=== PATIENT | male | born 1955 | race Caucasian/White ===

== ENCOUNTER 2018-05-16 10:47 | Emergency (ER) | payer OTHER ==
[2018-05-16 10:57] VITALS: BP 114/87; PULSE 99; O2SAT 98
[2018-05-16] MEDS ORDERED: BACIGUENT PACKET TP ONE (11:08)
[2018-05-16] MEDS ORDERED: BACIGUENT PACKET ONE (11:14)
--- NOTE | 2018-05-16 11:16 | ERPHSYRPT ---
- History of Present Illness Time Seen by Provider: 05/16/18 11:10 Source: patient Exam Limitations: no limitations Patient Subjective Stated Complaint: pt has neuropathy in feet and this weekend wore sandles and it rubbed left big toe and rubbed a blister. Triage Nursing Assessment: pt here for wound to left bieg toe , pt has large blister on bottom of left big toe Physician History: This is a 62-year-old white male who states she has cervical stenosis, decreased feeling in his feet, and diabetes type 2. He arrives with complaint of pain in his left foot and great toe. He states he has decreased sensation in his feet he wore sandals this weekend on Tuesday he states he developed a blister on the plantar surface of his left great toe. He states that this has ruptured and is no longer there however he has been having erythema and pain in his left great toe and left foot for the past 24 hours. He has not had any fevers no nausea no vomiting. Past medical history includes type 2 diabetes, cervical stenosis, high blood pressure Past surgical history includes C7-T2 fusion and surgery on a duodenal ulcer Social history patient denies tobacco alcohol or illicit drug use Method of Injury: other (patient walking in sandals developed blister which has popped, now left great toe painful erythema left gret toe and distal left foot.) Occurred: other (symptoms for 3 days) Lower Extremities Pain: foot: left, 1st toe: left Modifying Factors: Improves With: nothing Associated Symptoms: other (pain left great toe, ruptured blister (completely gone) plantar surface left great toe, erythema left great toe, left distal foot) Allergies/Adverse Reactions: No Known Drug Allergies Allergy (Unverified 05/16/18 10:57) Home Medications: Amlodipine Besylate 5 mg DAILY 05/16/18 [History] Baclofen 20 mg DAILY 05/16/18 [History] Duloxetine HCl 60 mg DAILY 05/16/18 [History] Gabapentin 800 mg TID 05/16/18 [History] PANTOPRAZOLE 40 mg Tablet [Protonix 40MG Tablet] 40 mg DAILY 05/16/18 [ History] Hx Tetanus, Diphtheria Vaccination/Date Given: No Hx Influenza Vaccination/Date Given: Yes Hx Pneumococcal Vaccination/Date Given: Yes Immunizations Up to Date: Yes - Review of Systems Constitutional: No Fever, No Chills Eyes: No Symptoms Ears, Nose, & Throat: No Symptoms Respiratory: No Cough, No Dyspnea Cardiac: No Chest Pain, No Edema, No Syncope Abdominal/Gastrointestinal: No Abdominal Pain, No Nausea, No Vomiting, No Diarrhea Genitourinary Symptoms: No Dysuria Musculoskeletal: Other (pain left great toe, left foot) Skin: Other (ruptured, excoriated blister left great toe plantar surface, erythema left distal foot left great toe) Neurological: Other (chronic decreased sensation in feet), No Dizziness, No Focal Weakness, No Sensory Changes Endocrine: No Symptoms All Other Systems: Reviewed and Negative - Past Medical History Pertinent Past Medical History: Yes Neurological History: Peripheral Neuropathy Cardiac History: Hypertension Endocrine Medical History: Diabetes Type II Musculoskeletal History: Other Other Medical History: chronic neck paion - Past Surgical History Past Surgical History: Yes Gastrointestinal: Other Musculoskeletal: Orthopedic Surgery Other Surgical History: neck surgery c2-t2 ,ulcer repair - Social History Smoking Status: Never smoker Exposure to second hand smoke: Yes Drug Use: none Patient Lives Alone: No - Nursing Vital Signs Nursing Vital Signs: Initial Vital Signs Temperature 97.4 F 05/16/18 10:51 Pulse Rate 99 H 05/16/18 10:51 Respiratory Rate 16 05/16/18 10:51 Blood Pressure 114/87 05/16/18 10:51 O2 Sat by Pulse Oximetry 98 05/16/18 10:51 Pain Scale Pain Intensity 5 - Physical Exam General Appearance: mild distress Eyes, Ears, Nose, Throat Exam: moist mucous membranes Neck Exam: non-tender, supple Cardiovascular/Respiratory Exam: chest non-tender, normal breath sounds, regular rate/rhythm, no respiratory distress Gastrointestinal/Abdominal Exam: non-tender, guarding Back Exam: normal inspection, No vertebral tenderness Hips Exam: bilateral: non-tender, normal inspection, normal range of motion, no evidence of injury Legs Exam: bilateral leg: non-tender, normal inspection, normal range of motion Knees Exam: bilateral knee: non-tender, normal inspection, normal range of motion, no evidence of injury Ankle Exam: bilateral ankle: non-tender, normal inspection, normal range of motion, no evidence of injury Foot Exam: right foot: non-tender, normal inspection, left foot: other ( erythema distal dorsal left foot and left great toe plantar surface, full range of motion all extremities, dorsal pedal, posterior tibial pulses intact 2/4, good capillary refill all toes, excoriated skin plantar surface left great toe approximately 3 cm), bilateral foot: normal range of motion Neuro/Tendon Exam: normal sensation, normal motor functions Mental Status Exam: alert, oriented x 3, cooperative Skin Exam: other (3 cm excoriation plantar surface left great toe. Erythema left distal foot dorsal surface. Erythema plantar surface left great toe) SpO2 Interpretation: normal SpO2: 98 - Course Nursing assessment & vital signs reviewed: Yes - Radiology Exams Left Foot X-ray Interpretation: Discussed w/ radiologist (x-ray left foot: Impression: 1. No acute fracture, dislocation, radiopaque soft tissue foreign body, or evidence of bone distraction is seen within the left foot.) Ordered Tests: Active Orders 24 hr Category Date Time Status Accucheck STAT Care 05/16/18 11:09 Active Crutches STAT Care 05/16/18 11:26 Active Wound Care STAT Care 05/16/18 11:08 Active FOOT (MINIMUM 3 VIEWS) Stat Exams 05/16/18 11:09 Completed Medication Summary Discontinued Medications Generic Name Dose Route Start Last Admin Trade Name Freq PRN Reason Stop Dose Admin Bacitracin Zinc 0.9 gm 05/16/18 11:08 05/16/18 11:15 Baciguent Packet TP 05/16/18 11:09 1 gm STAT ONE Administration Bacitracin Zinc Confirm 05/16/18 11:14 Baciguent Packet Administered 05/16/18 11:15 Dose 1 gm .ROUTE .STK-MED ONE Cefazolin Sodium 1 g 05/16/18 11:28 05/16/18 11:37 Kefzol 1 Gm IM 05/16/18 11:29 1 g STAT ONE Administration Cefazolin Sodium Confirm 05/16/18 11:36 Kefzol 1 Gm Administered 05/16/18 11:37 Dose 1 g .ROUTE .STK-MED ONE Ceftriaxone Sodium Confirm 05/16/18 11:30 Rocephin 1000 Mg Inj Administered 05/16/18 11:31 Dose 1,000 mg .ROUTE .STK-MED ONE Lidocaine HCl Confirm 05/16/18 11:31 Xylocaine 1% Hcl 20 Ml Mdv Administered 05/16/18 11:32 Dose 1 ml .ROUTE .STK-MED ONE Lidocaine HCl Confirm 05/16/18 11:32 Xylocaine 1% Hcl 20 Ml Mdv Administered 05/16/18 11:33 Dose 2 ml .ROUTE .STK-MED ONE Lidocaine HCl Confirm 05/16/18 11:36 Xylocaine 1% Hcl 20 Ml Mdv Administered 05/16/18 11:37 Dose 1 ml .ROUTE .STK-MED ONE - Progress Progress: improved Progress Note: 05/16/18 11:18 This is a 62-year-old white male who states that he has a history of cervical stenosis and decreased sensation in feet he states he also has diabetes type 2 he states he was walking around in sandals 2 days ago developed a blister on his foot which has ruptured and apparently has been excoriated. He states that he has been having pain in his left great toe and distal left foot dorsally. He has erythema to the plantar surface of the right great toe and mild erythema to the dorsal left distal foot. He has an excoriated area approximately 3 cm on the plantar surface of the left great toe. Will go ahead and obtain x-ray of the patient's left foot patient is at very high risk for diabetic ulcer. Him patient's Accu-Chek is checked is 127 There does not appear to be anything to culture for this patient he is afebrile. Will plan to give patient an injection of Kefzol 1 g IM plan home with Bactrim DS one orally twice a day for 10 days and Keflex 500 mg 4 times a day for 10 days. Patient states he is going home tomorrow he is to be nonweightbearing on the left foot. Crutches. Will write for a small amount of Woodward. Patient is to follow-up with his family doctor. 05/16/18 11:22 Patient states his tetanus is up-to-date with last injection less than 5 years. 05/16/18 11:38 - Departure Time of Disposition: 11:47 Departure Disposition: Home Clinical Impression: Cellulitis of left foot, excoriated blister left great toe, High risk for diabetic foot ulcer Condition: Fair Critical Care Time: No Referrals: DOCTOR,NO FAMILY [Primary Care Provider] - Additional Instructions: Return home. No weightbearing left foot. Use crutches. Clean left great toe and apply bacitracin daily. Woodward, Bactrim, Keflex as prescribed. Follow-up with your family doctor in one to 2 days, sooner if problems. Return for acute distress or for severe symptoms. Prescriptions: Cephalexin Mh 500 mg [Keflex 500 mg] 500 mg PO Q6H #40 capsule Hydrocodone/Acetaminophen [Woodward 5-325 Tablet] 1 tab PO Q4-6HPRN PRN #12 tablet MDD 6 tablets PRN Reason: pain Smz/Tmp Ds Tablet [Bactrim Ds Tablet] 1 tab PO BID #20 tablet
[2018-05-16] MEDS ORDERED: KEFZOL 1 GM IM ONE (11:28)
[2018-05-16] MEDS ORDERED: Rocephin 1000 MG INJ ONE (11:30)
[2018-05-16] MEDS ORDERED: XYLOCAINE 1% HCL 20 ML MDV ONE ×3 (11:31→11:36)
[2018-05-16] MEDS ORDERED: KEFZOL 1 GM ONE (11:36)
--- NOTE | 2018-05-16 11:41 | XRAY ---
Exam: 3 view left foot series from 05/16/2018. Indication: 62-year-old male patient who wore sandals over the weekend and developed a blister on his left great toe which is now described as an "ulcer". Findings: AP, oblique, and lateral radiographs were obtained. I see no acute fracture or dislocation. No abnormal periosteal reaction or bone destruction is seen. No radiopaque soft tissue foreign body is seen. There is mild hyperextension of the second through fifth MTP joints with mild flexion of the interphalangeal joints of the respective toes on the lateral image. There is a normal plantar arch. Impression: 1. No acute fracture, dislocation, radiopaque soft tissue foreign body, or evidence of bone destruction is seen within the left foot.
== END 2018-05-16 12:22 | disposition home or self-care (01) ==
LOC: ED 10:47
DX: L03.116 Cellulitis of left lower limb (principal); S90.422A Blister (nonthermal), left great toe, initial encounter; E11.9 Type 2 diabetes mellitus without complications; Z79.899 Other long term (current) drug therapy
CPT/HCPCS: 73630; 82962; 96372; 99284; J0690; J0696; A9270-GY

== ENCOUNTER 2020-08-20 11:03 | Emergency (ER) | payer OTHER ==
[2020-08-20] MEDS ORDERED: TRANDATE 20 MG/5 ML SYRINGE IV ONE ×2 (11:19→11:23)
[2020-08-20] MEDS ORDERED: BABY ASPIRIN 81 MG CHEW PO ONE (11:23)
[2020-08-20] MEDS ORDERED: BABY ASPIRIN 81 MG CHEW ONE (11:24)
--- NOTE | 2020-08-20 11:24 | ERPHSYRPT ---
- History of Present Illness Time Seen by Provider: 08/20/20 11:13 Historian: patient Exam Limitations: no limitations Patient Subjective Stated Complaint: chest tightness and palpitations, no real pain Triage Nursing Assessment: pt to ED c/o chest pain and palpitations onset when waking this morning. states "I feel like every third beat is missing." rates 1/10 tight pain in center of chest and epigastric area. denies caridac hx other than HTN. denies NVD or headache. heart sounds clear and lung sounds clear/equal bilaterally. ambulates with cane normally but back to ED in WC. Physician History: He awoke today with palpitations, some mild chest pressure, not true pain. 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 BP elevated today as well, he took his BP med about 2 hours ago. 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 Hx HTN but no hx of CAD. Timing/Duration: today Activities at Onset: none Quality: other (palpitations) Location: central Chest Pain Radiation: no radiation Severity of Pain-Max: moderate Severity of Pain-Current: mild Modifying Factors: Improves With: nothing Associated Symptoms: palpitations Prior Chest Pain/Cardiac Workup: no prior chest pain Nitro Today/Relief: no nitro taken today (not prescribed, no need) Aspirin Treatment Today: no aspirin today Allergies/Adverse Reactions: No Known Drug Allergies Allergy (Verified 08/20/20 11:16) Home Medications: Amlodipine Besylate 5 mg DAILY 05/16/18 [History] Duloxetine HCl 60 mg DAILY 05/16/18 [History] Gabapentin 800 mg TID 05/16/18 [History] PANTOPRAZOLE 40 mg Tablet [Protonix 40MG Tablet] 40 mg DAILY 05/16/18 [History] Irbesartan [Avapro] 300 mg PO DAILY 08/20/20 [History] Hx Tetanus, Diphtheria Vaccination/Date Given: No Hx Influenza Vaccination/Date Given: Yes Hx Pneumococcal Vaccination/Date Given: Yes Immunizations Up to Date: Yes Travel Risk - International Travel Have you traveled outside of the country in past 3 weeks: No - Coronavirus Screening Are you exhibiting any of the following symptoms?: No Close contact with a COVID-19 positive Pt in past 14-21 Days: No - Review of Systems Constitutional: No Symptoms Eyes: No Symptoms Ears, Nose, & Throat: No Symptoms Respiratory: No Symptoms Cardiac: No Symptoms Abdominal/Gastrointestinal: No Symptoms Genitourinary Symptoms: No Symptoms Musculoskeletal: No Symptoms Skin: No Symptoms Neurological: No Symptoms Psychological: No Symptoms Endocrine: No Symptoms Hematologic/Lymphatic: No Symptoms Immunological/Allergic: No Symptoms All Other Systems: Reviewed and Negative - Past Medical History Pertinent Past Medical History: Yes Neurological History: Peripheral Neuropathy ENT History: No Pertinent History Cardiac History: High Cholesterol, Hypertension Respiratory History: No Pertinent History Endocrine Medical History: Diabetes Type II Musculoskeletal History: Other GI Medical History: No Pertinent History History: No Pertinent History Psycho-Social History: No Pertinent History Male Reproductive Disorders: No Pertinent History Other Medical History: chronic neck pain - Past Surgical History Past Surgical History: Yes Gastrointestinal: Other Musculoskeletal: Orthopedic Surgery Other Surgical History: neck surgery c2-t2, ulcer repair - Social History Smoking Status: Never smoker Exposure to second hand smoke: Yes Drug Use: none Patient Lives Alone: No - Nursing Vital Signs Nursing Vital Signs: Initial Vital Signs Temperature 98.7 F 08/20/20 11:04 Pulse Rate 90 08/20/20 11:04 Respiratory Rate 18 08/20/20 11:04 Blood Pressure 196/114 08/20/20 11:04 O2 Sat by Pulse Oximetry 97 08/20/20 11:04 Pain Scale Pain Intensity 0 - Physical Exam General Appearance: no apparent distress, alert Eye Exam: PERRL/EOMI, eyes nml inspection Ears, Nose, Throat Exam: normal ENT inspection Neck Exam: normal inspection Respiratory Exam: normal breath sounds Cardiovascular Exam: regular rate/rhythm, normal heart sounds Gastrointestinal/Abdomen Exam: soft, normal bowel sounds Rectal Exam: deferred Extremity Exam: normal inspection Neurologic Exam: alert, oriented x 3, cooperative, normal mood/affect Skin Exam: normal color SpO2 Interpretation: normal SpO2: 97 O2 Delivery: Room Air - Course Nursing assessment & vital signs reviewed: Yes EKG Interpreted by Me: Sinus Rhythm, NORMAL AXIS, NORMAL INTERVALS, NORMAL QRS, NORMAL ST-T, Other (Multiple PVC's) Ordered Tests: Active Orders 24 hr Category Date Time Status Guide Domestic Tour STAT Care 08/20/20 11:10 Completed EKG-ER Only STAT Care 08/20/20 11:10 Completed IV Insertion STAT Care 08/20/20 11:10 Completed CBC W DIFF Stat Lab 08/20/20 11:30 Completed CK-Creatinine Phosphokinase Stat Lab 08/20/20 11:30 Completed CMP Stat Lab 08/20/20 11:30 Completed D-DIMER QUANTITATIVE Stat Lab 08/20/20 11:30 Completed MAGNESIUM Stat Lab 08/20/20 11:30 Completed NT PRO BNP Stat Lab 08/20/20 11:30 Completed TROPONIN Q3H Lab 08/20/20 11:30 Completed TROPONIN Q3H Lab 08/20/20 13:13 Completed Medication Summary Discontinued Medications Generic Name Dose Route Start Last Admin Trade Name Freq PRN Reason Stop Dose Admin Aspirin 324 mg 08/20/20 11:23 08/20/20 11:25 Baby Aspirin 81 Mg Chew PO 08/20/20 11:24 324 mg STAT ONE Administration Aspirin Confirm 08/20/20 11:24 Baby Aspirin 81 Mg Chew Administered 08/20/20 11:25 Dose 324 mg .ROUTE .STK-MED ONE Sodium Chloride 500 mls @ 500 mls/hr 08/20/20 13:07 08/20/20 14:27 Sodium Chloride 0.9% 500 Ml IV 08/20/20 14:06 Infused .Q1H ONE Infusion Sodium Chloride Confirm 08/20/20 13:09 Sodium Chloride 0.9% 500 Ml Administered 08/20/20 13:10 Dose 500 mls @ ud IV .STK-MED ONE Labetalol HCl 20 mg 08/20/20 11:19 08/20/20 11:24 Trandate 20 Mg/5 Ml Syringe IV 08/20/20 11:20 20 mg STAT ONE Administration Labetalol HCl Confirm 08/20/20 11:23 Trandate 20 Mg/5 Ml Syringe Administered 08/20/20 11:24 Dose 20 mg IV .STK-MED ONE Lab/Rad Data: Laboratory Result Diagrams 08/20/20 11:30 08/20/20 11:30 Laboratory Results 08/20/20 08/20/20 08/20/20 Range/Units 13:13 11:30 11:30 WBC (4.0-10.5) K/mm3 RBC (4.1-5.6) M/mm3 Hgb (12.5-18.0) gm/dl Hct (42-50) % MCV (78-100) fl MCH (26-32) pg MCHC (32-36) g/dl RDW (11.5-14.0) % Plt Count (150-450) K/mm3 MPV (7.5-11.0) fl Gran % (36.0-66.0) % Eos # (Auto) (0-0.5) Absolute Lymphs (auto) (1.0-4.6) Absolute Monos (auto) (0.0-1.3) Lymphocytes % (24.0-44.0) % Monocytes % (0.0-12.0) % Eosinophils % (0.00-5.0) % Basophils % (0.0-0.4) % Absolute Granulocytes (1.4-6.9) Basophils # (0-0.4) D-Dimer 379 (215-500) ng/mL Sodium (137-145) mmol/L Potassium (3.5-5.1) mmol/L Chloride (98-107) mmol/L Carbon Dioxide (22-30) mmol/L Anion Gap (5-15) MEQ/L BUN (9-20) mg/dL Creatinine (0.66-1.25) mg/dL Estimated GFR ML/MIN Glucose (74-106) mg/dL Calcium (8.4-10.2) mg/dL Magnesium (1.6-2.3) mg/dL Total Bilirubin (0.2-1.3) mg/dL AST (17-59) U/L ALT (0-50) U/L Alkaline Phosphatase (38-126) U/L Creatine Kinase (55-170) U/L Troponin I < 0.012 < 0.012 (0.000-0.034) ng/mL NT-Pro-B Natriuret Pep (0-900) pg/mL Serum Total Protein (6.3-8.2) g/dL Albumin (3.5-5.0) g/dL 08/20/20 08/20/20 Range/Units 11:30 11:30 WBC 5.0 (4.0-10.5) K/mm3 RBC 4.23 (4.1-5.6) M/mm3 Hgb 13.8 (12.5-18.0) gm/dl Hct 42.3 (42-50) % MCV 100.0 (78-100) fl MCH 32.6 H (26-32) pg MCHC 32.6 (32-36) g/dl RDW 12.4 (11.5-14.0) % Plt Count 227 (150-450) K/mm3 MPV 9.3 (7.5-11.0) fl Gran % 63.1 (36.0-66.0) % Eos # (Auto) 0.08 (0-0.5) Absolute Lymphs (auto) 1.36 (1.0-4.6) Absolute Monos (auto) 0.36 (0.0-1.3) Lymphocytes % 27.4 (24.0-44.0) % Monocytes % 7.3 (0.0-12.0) % Eosinophils % 1.6 (0.00-5.0) % Basophils % 0.6 (0.0-0.4) % Absolute Granulocytes 3.13 (1.4-6.9) Basophils # 0.03 (0-0.4) D-Dimer (215-500) ng/mL Sodium 139 (137-145) mmol/L Potassium 4.8 (3.5-5.1) mmol/L Chloride 109 H (98-107) mmol/L Carbon Dioxide 19 L (22-30) mmol/L Anion Gap 15.1 H (5-15) MEQ/L BUN 27 H (9-20) mg/dL Creatinine 1.15 (0.66-1.25) mg/dL Estimated GFR > 60.0 ML/MIN Glucose 91 (74-106) mg/dL Calcium 9.9 (8.4-10.2) mg/dL Magnesium 2.0 (1.6-2.3) mg/dL Total Bilirubin 0.30 (0.2-1.3) mg/dL AST 33 (17-59) U/L ALT 28 (0-50) U/L Alkaline Phosphatase 64 (38-126) U/L Creatine Kinase 287 H (55-170) U/L Troponin I (0.000-0.034) ng/mL NT-Pro-B Natriuret Pep 120 (0-900) pg/mL Serum Total Protein 7.7 (6.3-8.2) g/dL Albumin 4.5 (3.5-5.0) g/dL Labs unremarkable except minor renal insufficiency. Mild volume depletion, gave IVF. Serial troponins neg. CK elevated, he has some muscle soreness. - Progress Progress: improved Air Movement: good Progress Note: BP elevated, normal with labetalol 20 mg IV,. Work-up normal, PVC's noted. We did not do thyroid testing. 4 hr troponin neg. D/C with importance of F/U stressed. No caffeine. Monitor BP. May need a Holter monitor. ASA daily. See PCP or comsec manager JONAH. CXR not indicated. Labs normal. 08/21/20 04:30 08/21/20 04:35 Blood Culture(s) Obtained: No Antibiotics given: No Counseled pt/family regarding: lab results, diagnosis, need for follow-up, rad results - Departure Departure Disposition: Home Clinical Impression: Palpitations Hypertension Qualifiers: Hypertension type: essential hypertension Qualified Code(s): I10 - Essential (primary) hypertension Condition: Stable Critical Care Time: No Referrals: DOCTOR,NO FAMILY [Primary Care Provider] - Instructions: Chest Pain (DC) Additional Instructions: Monitor your blood pressure. See your PCP for a recheck soon.
[2020-08-20 11:45] LABS: Absolute Neutrophil Ct (ANC) 3.13 (1.4-6.9); BASOPHIL % 0.6 % (0.0-0.4); Basophil (Absolute #) 0.03 (0-0.4); Eosinophil % 1.6 % (0.00-5.0); Eosinophil (Absolute #) 0.08 (0-0.5); Hematocrit 42.3 % (42-50); Hemoglobin 13.8 gm/dl (12.5-18.0); Lymphocyte (Absolute #) 1.36 (1.0-4.6); Lymphocytes % 27.4 % (24.0-44.0); Mean Corpuscular Hemoglobin 32.6 pg (26-32); Mean Corpuscular Hgb Concent. 32.6 g/dl (32-36); Mean Platelet Volume 9.3 fl (7.5-11.0); Monocyte (Absolute #) 0.36 (0.0-1.3); Monocytes % 7.3 % (0.0-12.0); Neutrophil % 63.1 % (36.0-66.0); Platelet Count 227 K/mm3 (150-450); Red Blood Count 4.23 M/mm3 (4.1-5.6); Red Cell Distribution Width 12.4 % (11.5-14.0)
[2020-08-20 12:12] LABS: ALBUMIN 4.5 g/dL (3.5-5.0); ALKALINE PHOSPHATASE 64 U/L (38-126); ANION GAP 15.1 MEQ/L (5-15); BLOOD UREA NITROGEN 27 mg/dL (9-20); CHLORIDE 109 mmol/L (98-107); CK-Creatinine Phosphokinase 287 U/L (55-170); Calcium 9.9 mg/dL (8.4-10.2); Carbon Dioxide 19 mmol/L (22-30); Creatinine 1 1.15 mg/dL (0.66-1.25); EST GLOMERULAR FILTRATION RATE > 60.0 ML/MIN; Glucose 91 mg/dL (74-106); NT PRO BNP 120 pg/mL (0-900); Potassium 4.8 mmol/L (3.5-5.1); SGOT/AST 33 U/L (17-59); SGPT/ALT 28 U/L (0-50); SODIUM 139 mmol/L (137-145); Total Protein 7.7 g/dL (6.3-8.2)
[2020-08-20] MEDS ORDERED: Sodium Chloride 0.9% 500 ML 500 ML IV ONE ×2 (13:07→13:09)
[2020-08-20 14:36] VITALS: BP 174/78; PULSE 89
[2020-08-20 17:58] VITALS: O2SAT 97
== END 2020-08-20 14:36 | disposition home or self-care (01) ==
LOC: ED 11:03
DX: R00.2 Palpitations (principal); I10 Essential (primary) hypertension; R07.89 Other chest pain; Z79.899 Other long term (current) drug therapy; E11.9 Type 2 diabetes mellitus without complications; N28.9 Disorder of kidney and ureter, unspecified; E86.9 Volume depletion, unspecified
CPT/HCPCS: 36000; 36415; 80053; 82550; 83735; 83880; 84484; 85025; 85379; 93005; 93041; 96360; 96374; 99284; A9270-GY